=== PATIENT | male | born 1985 | race Caucasian/White ===

== ENCOUNTER 2024-09-25 12:16 | Emergency (ER) | payer OTHER, SELFPAY ==
[2024-09-25 12:19] VITALS: BP 163/95
--- NOTE | 2024-09-25 13:10 | ED.GENMED ---
History of Present Illness
General
Chief Complaint: Musculo-Skeletal Complaint
Time Seen by Provider: 09/25/24 13:04
History of Present Illness
History of Present Illness:
39 yo male presents to the Emergency Department for evaluation of R shoulder injury after a fall 3 days ago. Was ice skating with his son and fell onto his right shoulder. Pain to AC joint. Able to move the shoulder with pain.
Review of Systems
Review of Systems
Allergies reviewed?: Yes
All Other Systems: ROS reviewed and negative except as documented in HPI and ROS
Phy Exam
Physical Exam
Physical Exam:
GEN: Well appearing, NAD, WDWN
HEENT: Oral mucosa moist, no scleral icterus
Cardiac: Regular rate
Lung: No respiratory distress, no tachypnea
MSK: No gross deformity or injuries. Tenderness elicited to the right AC joint, no piano keying or gross step-off, right shoulder range of motion normal in all lynch
Skin: Good color, no pallor or jaundice, no rashes
Neuro: AO x3, moves all extremities freely
Psych: Calm, cooperative
Course
Orders/Labs/Results
Orders:
Orders
09/25/24 12:18
CR Shoulder, Trauma - Right Urgent
Comment:
Reason For Exam: fall
Vital Signs
Initial and Last Documented VS:
Initial Vital Signs
Temp Pulse Resp BP Pulse Ox
98.8 F 87 18 163/95 100
09/25/24 12:19 09/25/24 12:19 09/25/24 12:19 09/25/24 12:19 09/25/24 12:19
Last Documented Vital Signs
Temp Pulse Resp BP Pulse Ox
98.8 F 87 18 163/95 100
09/25/24 12:19 09/25/24 12:19 09/25/24 12:19 09/25/24 12:19 09/25/24 12:19
MDM/Problems Addressed
MDM/Problems Addressed:
XR unremarkable, no clear deformity to AC joint, likely grade I AC sprain, discussed supportive care
*Critical Care Note
Total Time (30-74mins, 75-104mins- exclusive of procedures): Not Applicable
ED Attending Note
-
Portions of this chart may have been created with voice recognition software.� Occasional wrong word or��sound alike� substitutions may have occurred due to the inherent limitations of voice recognition software.
Discharge Plan
Departure
Patient Disposition: Home (Routine Discharge)
Date of Disposition: 09/25/24
Time of Disposition: 13:14
Patient with high blood pressure during this ER visit?: No
Discharge Problem:
Sprain of right acromioclavicular joint, initial encounter
Instructions: shoulder
Prescriptions:
No Action
No Current Medications
0
Interventions
Interventions:
*Risk Screen - Suicide Last Done: 09/25/24 12:21
*General Assessment Last Done: 09/25/24 12:21
*Neglect/Abuse Screening Last Done: 09/25/24 12:21
ED- Fall Risk Assessment Last Done: 09/25/24 13:31
*ED COVID-19 Vaccine History Last Done: 09/25/24 13:31
*Nursing Disposition Last Done: 09/25/24 13:31
ED-Musculoskeletal Assessment Last Done: 09/25/24 13:31
Discharge Date and Time
Discharge Date/Time: 09/25/24 13:32
Print Language: [id number]
== END 2024-09-25 13:32 | disposition home or self-care (01) ==
LOC: EMR 12:16
PROVIDERS: EMERGENCY PHYSICIAN Student in an Organized Health Care Education/Training Program; FAMILY PHYSICIAN Internal Medicine
DX: S43.51XA Sprain of right acromioclavicular joint, initial encounter (principal); W19.XXXA Unspecified fall, initial encounter; Y93.21 Activity, ice skating
CPT/HCPCS: 99283; 73030